=== PATIENT | male | born 1980 | race Caucasian/White ===

== ENCOUNTER 2018-07-29 02:49 | Emergency (ER) | payer OTHER ==
[2018-07-29 02:55] VITALS: BP 134/80
[2018-07-29] MEDS ORDERED: DEXAMETHASONE 4 MG TAB PO ONE (03:29)
--- NOTE | 2018-07-29 03:30 | EDPHY ---
H & P Stated Complaint: sore throat started yesterday Time Seen by Provider: 07/29/18 02:56 HPI/ROS: HPI The patient presents with sore throat which has been present for the last 2 days which started slowly and was initially intermittent though now is constant. He notes when he drinks water his throat hurts a lot. He does not have any neck pain, fevers, chills, nausea, vomiting, cough, rhinorrhea. REVIEW OF SYSTEMS 10 systems were reviewed and negative with the exception of the elements mentioned in the history of present illness. PMHx: Healthy Soc Hx: Housed PHYSICAL General Appearance: Alert, no distress Eyes: Pupils equal and round no pallor or injection ENT, Mouth: Mucous membranes moist, posterior pharynx is slightly erythematous without any exudates, there is cervical lymphadenopathy Respiratory: There are no retractions, lungs are clear to auscultation Cardiovascular: Regular rate and rhythm Gastrointestinal: Abdomen is soft and non-tender, no masses, bowel sounds normal Neurological: A&O, moves all extremities Skin: Warm and dry, no rashes Musculoskeletal: Neck is supple non tender Extremities: symmetrical, full range of motion Psychiatric: Patient is oriented X 3, there is no agitation Source: Patient Exam Limitations: No limitations - Personal History Current Tetanus/Diphtheria Vaccine: Yes Current Tetanus Diphtheria and Acellular Pertussis (TDAP): Yes - Medical/Surgical History Hx Asthma: No Hx Chronic Respiratory Disease: No Hx Diabetes: No Hx Cardiac Disease: No Hx Renal Disease: No Hx Cirrhosis: No Hx Alcoholism: No Hx HIV/AIDS: No Hx Splenectomy or Spleen Trauma: No Other PMH: Left ankle surgery x2 - Social History Smoking Status: Never smoked Constitutional: Initial Vital Signs Temperature (C) 36.6 C 07/29/18 02:52 Heart Rate 80 07/29/18 02:52 Respiratory Rate 16 07/29/18 02:52 Blood Pressure 134/80 H 07/29/18 02:52 O2 Sat (%) 96 07/29/18 02:52 O2 Delivery Mode Room Air Allergies/Adverse Reactions: No Known Allergies Allergy (Verified 07/29/18 02:55) Home Medications: Medication Instructions Recorded NK [No Known Home Meds] 01/26/18 Medical Decision Making Differential Diagnosis: 37-year-old male with sore throat for the last several days. On exam, vital signs normal, posterior pharynx is injected without exudate. Differential diagnosis is strep pharyngitis, viral pharyngitis, less likely peritonsillar abscess. Rapid strep negative. Patient will be treated with Decadron and instructions for anti-inflammatories. He will be discharged home. - Data Points Laboratory Results: 07/29/18 07/29/18 Unknown 02:58 Group A Strep Screen NEGATIVE (NEGATIVE) Group A Strep DNA Pending Departure - Departure Disposition: Home, Routine, Self-Care Clinical Impression: Acute pharyngitis Qualifiers: Pharyngitis/tonsillitis etiology: unspecified etiology Qualified Code(s): J02.9 - Acute pharyngitis, unspecified Condition: Good Instructions: Pharyngitis (ED) Additional Instructions: I recommend you take ibuprofen 400 mg every 6 hr with acetaminophen 1000 mg for your sore throat. You should be better in the next 1-2 days, if not, you should follow up with your primary care doctor. Referrals: Cm Donahue MD [Primary Care Provider] - As per Instructions
== END 2018-07-29 03:42 | disposition home or self-care (01) ==
DX: J02.9 Acute pharyngitis, unspecified (principal)